=== PATIENT | female | born 1950 ===

== ENCOUNTER → 2021-02-22 06:46 | Outpatient (CLI) | payer OTHER ==
[~2021-02-22 06:46] MED LIST: ALENDRONATE SOD70 MG PO; ANORO ELLIPTA1 EACH IH; COZAAR50 MG PO; MAXIMUM D3325 MCG PO; VITAMIN B-121000 MC4 PO
== END | disposition home or self-care (01) ==
LOC: EKG 06:46
PROVIDERS: ATTEND Surgery
DX: I10 Essential (primary) hypertension (principal)

== ENCOUNTER 2021-03-05 06:47 | Day surgery (SDC) | payer OTHER ==
[2021-03-05] MEDS ORDERED: ULTRACET PO (12:40)
[2021-03-05] MEDS ORDERED: RECTICARE30 GM TOP (12:41)
== END 2021-03-05 15:50 | disposition home or self-care (01) ==
LOC: CIR.AMB 06:47
PROVIDERS: ATTEND Surgery
DX: D12.8 Benign neoplasm of rectum (principal); Z20.822 Contact with and (suspected) exposure to COVID-19